=== PATIENT | male | born 1950 | race Caucasian/White ===

== ENCOUNTER 2018-03-29 09:16 | Day surgery (SDC) | payer MEDICARE ==
[2018-03-29] MEDS ORDERED: LIDOCAINE 1% W/EPI 1:200,000 MPF 30ML SQ ONE (09:17)
--- NOTE | 2018-03-30 06:00 | Operative Note ---
DATE OF SURGERY: 03/29/2018. PREOPERATIVE DIAGNOSIS: RIGHT CARPAL TUNNEL SYNDROME. POSTOPERATIVE DIAGNOSIS: RIGHT CARPAL TUNNEL SYNDROME. PROCEDURE: Right carpal tunnel release. STAFF SURGEON: Ankit Hunt MD ANESTHESIA: Local. PREPARATION: ChloraPrep. INDIVIDUAL CONSIDERATIONS: None. PROCEDURE: The patient was taken to the operating room and placed supine on the operating table. His right arm was prepped and draped in the usual fashion. The patient had 1% Lidocaine with epinephrine infiltrated along the longitudinal wrist crease volarly. The limb was then elevated and the tourniquet was inflated to 250 mmHg. The patient had an incision along the longitudinal wrist crease and then just barely crossing the flexion crease at a 45-degree angle ulnarly. Sharp dissection was carried down through the skin and subcutaneous tissue. Small veins were coagulated with a Bovie. Sharp dissection was carried down through the palmar fascia, through the adductor brevis, and then carefully through the transverse metacarpal fascia distally to the superficial arch and proximally to the antebrachial fascia. The recurrent branch was found to be normal. The nerve was hourglass shaped and erythematous. There were no tumors present. The tourniquet was let down and hemostasis was obtained with the Bovie. After irrigation, the skin was approximated with multiple interrupted #4-0 nylon in a vertical mattress fashion, and a sterile bulky compressive hand dressing was applied. The patient tolerated the procedure well. Needle and sponge counts were correct. Estimated blood loss was minimal and he was taken back to Recovery in good condition. There were no complications. JOB NUMBER: [id number] [facility]
== END 2018-03-29 14:10 | disposition home or self-care (01) ==
LOC: SUR 09:16
PROVIDERS: ATTEND Orthopaedic Surgery
DX: G56.01 Carpal tunnel syndrome, right upper limb (principal); I10 Essential (primary) hypertension